=== PATIENT | male | born 1995 | race Caucasian/White ===

== ENCOUNTER 2016-08-28 13:46 | Emergency (ER) | payer OTHER ==
[2016-08-28] MEDS ORDERED: Acetaminophen TAB* 325 MG PO ONE (15:19)
[2016-08-28] MEDS ORDERED: NS 0.9% 1000 ML* 2,000 ML IV ONE (15:19)
[2016-08-28 15:50] LABS: Hematocrit 45 % (42-52); Hemoglobin 15.1 g/dl (14.0-18.0); Mean Corpuscular HGB Conc 34 g/dl (31-36); Mean Corpuscular Hemoglobin 30 pg (27-31); Mean Corpuscular Volume 89 fL (80-94); Mean Platelet Volume 9 um3 (7.4-10.4); Red Blood Count 5.01 10^6/ul (4.0-5.4); Red Cell Distribution Width 13 % (10.5-15); White Blood Count 11.2 10^3/ul (3.5-10.8)
[2016-08-28 15:57] LABS: Urine Bilirubin Negative (Negative); Urine Glucose Negative (Negative); Urine Nitrite Negative (Negative)
[2016-08-28 16:06] LABS: ALT 15 U/L (7-52); Albumin 4.7 g/dL (3.2-5.2); Alkaline Phosphatase 40 U/L (34-104); Amylase 26 U/L (29-103); BUN/Creatinine Ratio 13.7 (8-20); Blood Urea Nitrogen 13 mg/dL (6-24); C Reactive Protein 25.51 mg/L (< 5.00); CO2 Carbon Dioxide 24 mmol/L (22-32); Calcium 9.4 mg/dL (8.6-10.3); Chloride 104 mmol/L (101-111); EGFR African American 128.7 (>60); EGFR Non-African American 100.1 (>60); Globulin 2.9 g/dL (2-4); Glucose 115 mg/dL (70-100); Lipase < 10 U/L (11.0-82.0); Sodium 135 mmol/L (133-145); Total Protein 7.6 g/dL (6.4-8.9)
--- NOTE | 2016-08-28 16:43 | RAD ---
INDICATION: Fever COMPARISON: None TECHNIQUE: PA and lateral views of the chest were obtained. FINDINGS: The heart and mediastinum are normal in size and contour. The lungs are grossly clear. There is no evidence of large pleural effusion. Visualized bones are normal for the patient's age. There is no radiographic evidence of free air beneath the diaphragm IMPRESSION: No radiographic evidence of acute cardiopulmonary disease.
[2016-08-28] MEDS ORDERED: Potassium Chlor TAB* 20 MEQ TAB.ER PO ONE (18:06)
--- NOTE | 2016-08-28 18:22 | ED ---
Kassie Richardson Michael, scribed for Kashif Luciano MD on 08/28/16 at 1504 . Influenza-Like Illness - HPI Summary HPI Summary: 20 y/o male comes to the ED presenting with influenza like symptoms that started this morning at 0300. The pt reports that his symptoms started with chills, and then shortly after had one episode of diarrhea, nausea, and 6 episodes of vomiting that lasted from 0300 until 0900 this morning. The diarrhea was described as watery. He also c/o nasal drainage, sore throat, and GOMEZ. The pt denies cough and abd pain. A significant PMHx and FHx were denied. - History of Current Complaint Chief Complaint: EDFluSymptoms Time Seen by Provider: 08/28/16 14:59 Hx Obtained From: Patient, Medical Records Onset/Duration: Sudden Onset, Lasting Hours, Still Present Severity: Moderate Associated Signs & Symptoms: Negative - cough and abd pain, Fever - with chills , Sore Throat, Nasal Congestion, Headache, Vomiting - nausea, Diarrhea - Allergy/Home Medications Allergies/Adverse Reactions: Allergies Allergy/AdvReac Type Severity Reaction Status Date / Time No Known Allergies Allergy Verified 08/28/16 13:47 PMH/Surg Hx/FS Hx/Imm Hx Previously Healthy: Yes - pt denies significant PMHx Infectious Disease History: No Infectious Disease History: Denies: Traveled Outside the [place] in Last 30 Days - Family History Known Family History: Positive: None Family History: pt denies a significant PMHx - Social History Occupation: Student Lives: With Family Alcohol Use: Occasionally Hx Substance Use: No Review of Systems Positive: Fever, Chills Positive: Sore Throat, Nasal Discharge Negative: Cough Positive: Vomiting, Diarrhea, Nausea. Negative: Abdominal Pain Positive: Headache All Other Systems Reviewed And Are Negative: Yes Physical Exam - Summary Physical Exam Summary: VITAL SIGNS: Reviewed. GENERAL: Patient is a well developed and nourished male who is lying comfortable in the stretcher. Patient is not in any acute respiratory distress. HEAD AND FACE: Normocephalic and atraumatic. EYES: PERRLA, EOMI x 2, No injected conjunctiva. EARS: Hearing grossly intact. Ear canals and tympanic membranes are WNL. MOUTH: Oropharynx within normal limits. NECK: Supple, trachea is midline, no adenopathy, no JVD. CHEST: Symmetric, no tenderness at palpation LUNGS: Clear to auscultation bilaterally. No wheezing or crackles. CVS: RRR,, S1 and S2 present, no murmurs or gallops appreciated. ABDOMEN: Soft, non-tender. No signs of distention. Positive bowel sounds. No rebound no guarding, and no masses palpated. No abdominal bruit or pulsations. EXTREMITIES: FROM in all major joints, no edema, no cyanosis or clubbing. NEURO: Alert and oriented x 3. No acute neurological deficits. Speech is normal. SKIN: Dry and warm Triage Information Reviewed: Yes Vital Signs On Initial Exam: Initial Vitals Temp Pulse Resp BP Pulse Ox 101.2 F 99 15 118/61 100 08/28/16 13:47 08/28/16 13:47 08/28/16 13:47 08/28/16 13:47 08/28/16 13:47 Vital Signs Reviewed: Yes Diagnostics - Vital Signs Vital Signs Temp Pulse Resp BP Pulse Ox 08/28/16 13:47 101.2 F 99 15 118/61 100 - Laboratory Result Diagrams: 08/28/16 15:35 08/28/16 17:07 Lab Statement: Any lab studies that have been ordered have been reviewed, and results considered in the medical decision making process. - Radiology CXR Xray Interpretation: No Acute Changes Radiology Interpretation Completed By: Radiologist Flu Symptom Course/Dx - Course Assessment/Plan: 20 y/o male comes to the ED presenting with influenza like symptoms that started this morning at 0300. The pt reports that his symptoms started with chills, and then shortly after had one episode of diarrhea, nausea , and 6 episodes of vomiting that lasted from 0300 until 0900 this morning. The diarrhea was described as watery. He also c/o nasal drainage, sore throat, and GOMEZ. The pt denies cough and abd pain. A significant PMHx and FHx were denied. Blood work wnl except for WBCs 11.2. CXR: No acute cardiopulmonary pathology. In the Ed course he was given IV fluids for rehydration and ZOfran for nausea and vomiting. After hydration and tylenol for fever and Zofran for vomiting the symptoms have improved. He reports he feels better. He will be discharged home with f/u of PMD. I discussed all the findings and test results with the patient. Patient was instructed to return to the emergency room immediately if any of the symptoms return or worsens. Plan of care was discussed with the patient and understands and agrees. All questions were answered at patient satisfaction. There were no further complaints or concerns. P/E: Lungs: CTA B/ L. Good air exchange. No wheezing or crackles heard. CVS: S1 and S2 present. No murmurs appreciated. Patient is alert and oriented x 3. Patient is hemodynamically stable. Patient will be discharged home with follow up PMD in the next 2-3 days - Diagnoses Differential Diagnosis/HQI/PQRI: Positive: Influenza, Upper Respiratory Infection, Other - Nausea and vomiting, diarrhea, gastritis, gastroenteritis Provider Diagnoses: Nausea & vomiting, Diarrhea Discharge - Discharge Plan Condition: Stable Disposition: HOME Prescriptions: Ondansetron ODT TAB* [Zofran Odt TAB*] 4 mg PO Q6H PRN #10 tab.odt PRN Reason: Vomiting Patient Education Materials: Ondansetron (By mouth), Acute Nausea and Vomiting (ED) Referrals: [facility] [Primary Care Provider] - Additional Instructions: Follow up with your Primary Care Physician. Return to the Emergency Department if you experience more vomiting, diarrhea, fever or chills. The documentation as recorded by the Kassie newton Michael accurately reflects the service I personally performed and the decisions made by me, Kashif Luciano MD.
[2016-08-28 18:42] VITALS: BP 115/43
== END 2016-08-28 18:41 | disposition home or self-care (01) ==
LOC: ED 13:46
DX: R11.2 Nausea with vomiting, unspecified (principal); R50.9 Fever, unspecified; J02.9 Acute pharyngitis, unspecified; R19.7 Diarrhea, unspecified; R51 Headache
CPT/HCPCS: 36415; 71020; 80053; 81003; 82150; 83605; 83690; 85025; 86140; 87040; 87502; 87651; 99283; A9270-GY